=== PATIENT | male | born 1955 | race Caucasian/White ===

== ENCOUNTER 2020-10-21 15:58 | Inpatient (IN) | payer MEDICARE ==
[~2020-10-21] VITALS: Ht 175.3 cm; Wt 128.2 kg
[~2020-10-21 15:58] MED LIST: GLUCOPHAGE1000 MG PO; KLONOPIN 0.5MG0.5 MG PO; NORVASC 5MG5 MG/TAB PO; VYTORIN 10 MG-41 TAB PO
[2020-10-21 20:14] LABS: BASO % 0.2 % (0.0-2.0); EOS # 0.1 (0.0-0.7); EOS % 0.7 % (0-4.0); GRAN # 5.4 (1.4-6.5); GRAN % 54.1 % (42.2-75.2); HEMATOCRIT 47.3 % (42.0-52.0); HEMOGLOBIN 16.1 g/dl (13.5-18.0); LYMPH # 3.6 (1.2-3.4); LYMPH % 36.7 % (20.0-51.0); MEAN CELL VOLUME 89 fl (80.0-100.0); MEAN CORPUSCULAR HEMOGLOBIN 30 pg (27.0-31.0); MEAN CORPUSCULAR HGB CONC 34 g/dl (33.0-37.0); MEAN PLATELET VOLUME 11.1 fl (7.4-10.4); MONO # 0.8 (0.1-0.6); PLATELET COUNT 228 K/mm3 (130-400); RED BLOOD COUNT 5.33 M/mm3 (4.20-5.60); REDCELL DISTRIBUTION WIDTH-CV 12.5 % (11.5-14.5)
[2020-10-21 20:24] LABS: ALANINE AMINOTRANSFERASE 35 U/L (4-49); ALKALINE PHOSPHATASE 120 U/L (50-136); ANION GAP 10 mmol/L (7-16); AST,SGOT 62 U/L (15-37); BILIRUBIN,TOTAL 0.8 mg/dL (0.0-1.0); BLOOD UREA NITROGEN 12 mg/dL (9-20); CARBON DIOXIDE 24 mmol/L (22-30); CHLORIDE 100 mmol/L (98-107); CREATININE, serum 0.69 (0.66-1.25); GLUCOSE 237 mg/dL (74-106); POTASSIUM 4.2 mmol/L (3.4-5.0); SODIUM 133 mmol/L (137-145); TOTAL PROTEIN 7.5 gm/dL (6.4-8.2)
[2020-10-21 20:27] LABS: INR 1.7 (0.8-3.0); PROTHROMBIN TIME 18.7 SECONDS (9.7-12.8)
[2020-10-21 20:30] LABS: PARTIAL THROMBOPLASTIN TIME 38.5 SECONDS (26.0-37.0)
[2020-10-21 20:37] LABS: CHOLESTEROL 227 mg/dL (120-200); CHOLESTEROL RISK RATIO 5.8; HDL CHOLESTEROL 39 mg/dL; LDL CHOLESTEROL 150 mg/dL; MAGNESIUM 1.6 mg/dL (1.6-2.3); TRIGLYCERIDE 191 mg/dL
[2020-10-21 21:10] VITALS: BP 123/72; PULSE 82; TEMP 98
[2020-10-21] MEDS ORDERED: COUMADIN 2MG2 MG/TAB PO (22:42)
[2020-10-21] MEDS ORDERED: ALTACE 5MG5 MG PO (22:43)
[2020-10-21] MEDS ORDERED: GLYNASE PRES-TAB6 MG PO (22:44)
[2020-10-21] MEDS ORDERED: FLEXERIL 1010 MG/TAB PO (22:45)
[2020-10-21] MEDS ORDERED: NEURONTIN100 MG/CAP PO (22:46)
[2020-10-21] MEDS ORDERED: AMARYL 2MG T2 MG/TAB PO (22:48)
[2020-10-21] MEDS ORDERED: PRAVACHOL 40MG40 MG PO (22:48)
[2020-10-21 23:37] VITALS: BP 118/52; PULSE 77; TEMP 97.9
[2020-10-22] VITALS (15 sets, daily range): BP systolic 117–151; BP diastolic 54–92; PULSE 81–94; TEMP 97.4–98.6
--- NOTE | 2020-10-22 00:59 | NUR ---
Patient arrived to [facility] at 1845. Assessment complete. Lungs clear. Heart sounds normal. Bowels active x4. Pulses present throughout. No edema noted. INT left AC without complications. Heparin gtt to be started. Denies pains at this time. Denies needs. Orientated to medical floor. All questions answered. Call light in reach.
--- NOTE | 2020-10-22 02:16 | NUR ---
Resting in bed.Call light in reach.
--- NOTE | 2020-10-22 04:41 | NUR ---
Resting in bed. Denies needs. Denies pain. Call light in reach.
--- NOTE | 2020-10-22 06:25 | NUR ---
Patient had uneventful night. Remains on heparin gtt. Dose change verified by KOLBY Mayes. Resting in bed this AM. Call light in reach.
--- NOTE | 2020-10-22 07:20 | NUR ---
Report given to KOLBY Fuentes
--- NOTE | 2020-10-22 09:39 | NUR ---
SW met with the patient to discuss discharge plan. The patient lives in [place] with his , Mckenzie (ph#[phone]). He reports independence with ADLs and does not have any DME. The patient's PCP is Dr. Jeronimo Alvarez and he receives his medications from [facility]. The patient does not have a DPOA-HC in EMR, but he states that he might have one completed. He states that if he does have one completed, that he would have designated his daughter, Kavita Lund. The patient plans to return home with his upon discharge. SW contacted the patient's , Mckenzie, to review the above information. Mckenzie reports no concerns about the patient returning back home with her upon discharge. No additional needs at this time.
--- NOTE | 2020-10-22 11:57 | NUR ---
0900 Hepxa was 0.22. order state to add 1.5ml/hr. drip rate changed from 11.5ml/hr to 13.0ml/hr.
--- NOTE | 2020-10-22 12:38 | NUR ---
Patient is alert and oriented. denies any pain. npo for left heart cath. Patient resting in the room at this time.
--- NOTE | 2020-10-22 18:34 | NUR ---
patient current in phlebotomy lab assistant for heart cath.
--- NOTE | 2020-10-22 18:34 | NUR ---
patient requested, this rn call his when he is on his way for heart cath. RN called .
--- NOTE | 2020-10-22 18:55 | NUR ---
Received report from [facility]. Patient still on industrial laborer for his heart cath.
--- NOTE | 2020-10-22 19:10 | NUR ---
Received patient from lab rn. Patient is awake, alert and oriented. He has small incision on his right radial with compression band and on his right groin. No bleeding noted. With IV on left AC. He is on room air. No complains of pain. carpenter labor supervisor staff informed patient to notify us if he feels pain on lower back or any untoward feeling or symptoms.
--- NOTE | 2020-10-22 20:23 | NUR ---
He complains of pain on his right groin incision site. Sugey JARRETT gave patient Morphine IV.
--- NOTE | 2020-10-22 21:30 | NUR ---
Began removing air from right radial band from heart cath. 5 ml air removed around 2100. No bleeding noted after 10 minutes. Removed the remainder of the 11 mls of air, for a total of 16 mls. No bleeding. Bandaid applied. Arm board placed back on patient to protect site.
--- NOTE | 2020-10-22 23:20 | NUR ---
Patient went up to the bathroom. He then called saying his IV site was bleeding. Removed IV and reinsert a new one on his left hand G22. Checked on his right radial and right groin site. No bleeding noted. Applied tegaderm on his right groin as the dressing is about to fall off. No complains of pain. Changed patient's gown.
[2020-10-23] VITALS (12 sets, daily range): BP systolic 113–154; BP diastolic 51–78; PULSE 71–87; TEMP 97.4–98.4
--- NOTE | 2020-10-23 06:30 | NUR ---
Patient had uneventful night. Checked again his right radial and right groin this morning and no bleeding noted. He denies pain.
--- NOTE | 2020-10-23 08:00 | NUR ---
Patient sitting up in the recliner talking on the phone. A&Ox4. VSS. Denies chest pain and discomfort. IV CDI. Right radial site, CDI. Right femoral site CDI. Patient independent in the room. Is hoping to go home today, just waiting on the doctor. No further needs expressed from the patient. Call light within reach
[2020-10-23 11:01] LABS: CALCIUM 8.5 mg/dL (8.4-10.2); CREATININE, serum 0.81 (0.66-1.25); MAGNESIUM 1.5 mg/dL (1.6-2.3)
[2020-10-23 11:07] LABS: PARTIAL THROMBOPLASTIN TIME 31.9 SECONDS (26.0-37.0)
[2020-10-23 11:51] LABS: HEMATOCRIT 43.6 % (42.0-52.0); HEMOGLOBIN 14.6 g/dl (13.5-18.0); MEAN CELL VOLUME 91 fl (80.0-100.0); MEAN CORPUSCULAR HEMOGLOBIN 31 pg (27.0-31.0); MEAN CORPUSCULAR HGB CONC 34 g/dl (33.0-37.0); MEAN PLATELET VOLUME 11.5 fl (7.4-10.4); PLATELET COUNT 183 K/mm3 (130-400); RED BLOOD COUNT 4.79 M/mm3 (4.20-5.60); REDCELL DISTRIBUTION WIDTH-CV 12.8 % (11.5-14.5)
[2020-10-23 13:03] LABS: BAND 4 % (0-10); EOSINOPHIL 3 % (0-4); LYMPHOCYTE 25 % (20.0-51.0); NEUTROPHILS 62 % (42.0-75.2); PLATELET ESTIMATE NORMAL (NORMAL)
--- NOTE | 2020-10-23 17:25 | NUR ---
Patient had an uneventful day. Spent most of the day sitting in the recliner watching TV and talking on the phone. A&Ox4. VSS. IV CDI. Patient took a shower and felt better, the family brought clothes to the patient as well. Reported 1xtime pain in upper midsternal chest that was sharp, but did not last long. Nurse informed the patient that we will monitor and to inform nursing staff if it happens again. Patient verbalized an understanding. No further needs expressed stephanie the patient. Call light within reach
--- NOTE | 2020-10-23 20:00 | NUR ---
PT RESTING IN BED WATCHING TV. DENEIS ANY PAIN. TELEMEMTRY AT . HEPARIN GTT AT 10CC/HR. NEXT DRAW IN AM. SEE ASSESSMENT COMPLETED.
[2020-10-24] VITALS (8 sets, daily range): BP systolic 90–144; BP diastolic 51–76; PULSE 73–93; TEMP 97.4–98.8
--- NOTE | 2020-10-24 00:46 | NUR ---
PT RESTING COMFORTABLY. HEPARIN XA 0.12. BOLUS HEPARIN 1000UNITS AND INCREASED TO 12.5CC/HR. PT VERBALIZED UNDERSTANDING.
--- NOTE | 2020-10-24 00:52 | NUR ---
report received from KOLBY Walker
--- NOTE | 2020-10-24 06:30 | NUR ---
PT LAYING IN BED AT THIS TIME. DENIES ANY NEEDS. ASSESSEMENT COMPLETE. NO CONCERNS AT THIS TIME. CALL LIGHT WITHIN REACH.
[2020-10-24 06:48] LABS: BASO % 0.1 % (0.0-2.0); EOS # 0.1 (0.0-0.7); EOS % 1.3 % (0-4.0); GRAN # 4.4 (1.4-6.5); HEMOGLOBIN 14.7 g/dl (13.5-18.0); LYMPH # 3.2 (1.2-3.4); LYMPH % 37.8 % (20.0-51.0); MEAN CELL VOLUME 92 fl (80.0-100.0); MEAN CORPUSCULAR HEMOGLOBIN 31 pg (27.0-31.0); MEAN CORPUSCULAR HGB CONC 33 g/dl (33.0-37.0); MEAN PLATELET VOLUME 11.3 fl (7.4-10.4); MONO # 0.6 (0.1-0.6); MONO % 7.3 % (1.7-9.3); PLATELET COUNT 202 K/mm3 (130-400); RED BLOOD COUNT 4.81 M/mm3 (4.20-5.60); REDCELL DISTRIBUTION WIDTH-CV 12.7 % (11.5-14.5)
[2020-10-24 06:54] LABS: CALCIUM 8.8 mg/dL (8.4-10.2); CREATININE, serum 0.81 (0.66-1.25)
--- NOTE | 2020-10-24 14:08 | NUR ---
1320: Pt informed SALINA Pacheco that he was having chest pain. This nurse into room, pt states chest pain is to left side and in left bicep and sharp. Nitro X2 given at [address] Avila notified, order for 2MG morphine now given, med pulled, not given due to BP, wasted w/ second RN. Pt BP was 93/51 after nitro and retaken 105/59. Pt stated he started to feel better have second nitro. Assisted back to bed. EKG ordered per verbal on phone w/ Dr. Avila. EKG NS. Will continue to monitor.
--- NOTE | 2020-10-24 15:00 | NUR ---
Pt laying in bed, on phone, appears comfortable, denies chest pain at this time.
--- NOTE | 2020-10-24 17:30 | NUR ---
Pt assessment completed and charted. Medications administered per jan. Pt A&O, independent in room, on room air, breathing even and unlabored. Pt denied chest pain this morning, had the one episode this afternoon, resolved with nitro X2. BPs have been soft, continuing to monitor. Pt has LWR IV w/ hep gtt running at 12.5 this moring, increased to 14ml/hr after hep xa of 0.16. No further needs expressed throughout day.
--- NOTE | 2020-10-24 18:30 | NUR ---
PT LAYING IN BED AT THIS TIME. DENIES ANY NEEDS. ASSESSMENT COMPLETED. NO FURTHER CONCERNS. CALL LIGHT WITHIN REACH.
--- NOTE | 2020-10-24 23:00 | NUR ---
shift report received from KOLBY Walker
--- NOTE | 2020-10-24 23:34 | NUR ---
REPORT GIVEN TO KOLBY COLORADO
[2020-10-25] VITALS (186 sets, daily range): BP systolic 120–13150; BP diastolic 8–91; PULSE 70–82; TEMP 97.4–98.1; O2SAT 76–100
--- NOTE | 2020-10-25 00:05 | NUR ---
appears to be dozing, awakened for lab, alert and oriented, skin warm and dry, color pink, heart rate strong and regular, lungs CTA, abdomen rounded and soft and bowel sounds present in 4 quads, peripheral pulses present in 4 extremities, denies needs at this time
--- NOTE | 2020-10-25 02:20 | NUR ---
up and to bathroom independently, denies needs
--- NOTE | 2020-10-25 03:40 | NUR ---
appears to be sleeping, in bed with lights off, eyes closed, resp quiet and easy
--- NOTE | 2020-10-25 05:20 | NUR ---
awake and sitting up in recliner, talking on phone
[2020-10-25 06:42] LABS: HEMATOCRIT 44.9 % (42.0-52.0); HEMOGLOBIN 14.8 g/dl (13.5-18.0); MEAN CELL VOLUME 93 fl (80.0-100.0); MEAN CORPUSCULAR HEMOGLOBIN 31 pg (27.0-31.0); MEAN CORPUSCULAR HGB CONC 33 g/dl (33.0-37.0); MEAN PLATELET VOLUME 11.4 fl (7.4-10.4); PLATELET COUNT 211 K/mm3 (130-400); RED BLOOD COUNT 4.85 M/mm3 (4.20-5.60); REDCELL DISTRIBUTION WIDTH-CV 12.7 % (11.5-14.5)
[2020-10-25 06:47] LABS: CALCIUM 8.9 mg/dL (8.4-10.2); CREATININE, serum 0.97 (0.66-1.25); POTASSIUM 4.3 mmol/L (3.4-5.0)
--- NOTE | 2020-10-25 06:49 | NUR ---
bedside shift report given to KOLBY Frias
--- NOTE | 2020-10-25 08:47 | NUR ---
Pt assessment completed and charted. Pt laying in bed, denies any chest pain overnight or currently. Pt has LWR IV w/ hep gtt @ 14ml (1400 units/hr). Pt denies dizziness, N/V/D. Pt on room air, breathing even and unlabored. Pusles strong bilaterally. LS cta, HRRR. Tele called earlier, leads checked and then pt was having echo done. No further needs expressed at this time. Consent signed for heart cath, scheduled this afternoon.
--- NOTE | 2020-10-25 10:46 | NUR ---
SW attended clinical rounds. The patient is to have a heart cath today. He is hopeful to go home soon. No additional needs at this time.
--- NOTE | 2020-10-25 14:36 | NUR ---
Pt doing well, laying in bed, no complaints at this time. Awaiting heart cath. Pt still on hep gtt, currently at 13ml/hr, decreased 1 from previous rate per protocol. Pt to have heart cath around 1500. Per Smairafelipe, plavix and asp ok to give at this time. KOLBY Briggs from blood bank laboratory professional up to prep pt, all questions answered.
--- NOTE | 2020-10-25 15:15 | NUR ---
Talked w/ pt , informed her pt was going down for heart cath.
--- NOTE | 2020-10-25 15:27 | NUR ---
Pt down for heart cath procedure at this time w/ Chester RN from labor law professor
--- NOTE | 2020-10-25 15:44 | NUR ---
SEE MERGE DOCUMENTATION FOR MEDICATION ADMINISTRATION TIMES AND INTRA/POST PROCEDURE SEDATION ASSESSMENTS. PLAN FOR LEFT GROIN ACCESS PER MD REQUEST. PREPROCEDURE PLAVIX AND ASA ADMIN ON FLOOR PER MD. HEPARIN GTT STOPPED PRIOR TO PT BEING BROUGHT TO PROCEDURE AREA PER MD.
--- NOTE | 2020-10-25 17:14 | NUR ---
Chester RN called from label press operator, pt will go to ICU for monitoring and to have sheath removal. Pt will then return to room 308 when done. No report received on procedure at this time. This nurse called pt and updated on status. stated she had talked to the physician. No further questions at this time.
--- NOTE | 2020-10-25 17:48 | NUR ---
patient arrived from hot plate plywood press laborer at this time, left femore sheath remmains in place, site looks good / soft and no signs of bleeding or hematoma at this time, vital signs stable, patient alert/oriented, will continue to monitor closely
--- NOTE | 2020-10-25 18:07 | NUR ---
patient continues to do wel post PCI, left femoral access site is soft and no signs of bleeding, Vital signs stable, patient resting quietly
--- NOTE | 2020-10-25 19:10 | NUR ---
ACT 164, floating labor gang supervisor pulling arterial sheath at this time
--- NOTE | 2020-10-25 19:42 | NUR ---
ACT drawn at [address] Krause contacted by this RN, orders received to pull femoral artery sheath. Sheath pulled by RT Dione(R) with manual pressure held for 23 min. Pt VS's monitored Q5 min during pressure hold and maintained WNL throughout. Hemostasis obtained and sterile dressing applied. Bedside handoff to VICE PRESIDENT SAFETY with instructions to frequently observe/palpate site per MD order. Site currently without bruising or bleeding, soft to palpation with no hematoma appreciated. Excoriation is noted to skin fold in groin. Distal pulses unchanged from preprocedure. Education provided to pt regarding s/sx to report to VICE PRESIDENT SAFETY. All questions answered at this time.
--- NOTE | 2020-10-25 21:53 | NUR ---
PT ALERT AND ORIENTED X4, ON ROOM AIR, COMPLAIN OF PAIN 4/10 ON LEFT GROIN BUT TOLERABLE AND DENIES NEED OF PAIN MEDICATION. PT REMAINS ON FLAT TIME UNITIL 2330. ALL NIGHT MEDS GIVEN. NO OTHER COMPLAINTS AT THIS TIME. LEFT GROIN SITE WITH DRESSING C/D/I AND A LITTLE BIT OF EXCORIATION NOTED AT SHIFT CHANGE. PT WILL GO BACK TO HIS ROOM AT 2330 ONCE FLAT TIME IS OVER. WILL CONTINUE TO MONITOR.
--- NOTE | 2020-10-25 22:30 | NUR ---
PT REQUESTING TO GO BACK TO HIS ROOM NOW. EDUCATED THAT FLAT TIME IS NOT DONE UNTIL 2330. TOLD PT THAT I WILL GIVE REPORT TO HIS NURSE UPSTAIRS AND WILL START TRANSPORTING HIM AT 2315 VIA HIS BED WHILE REMAINING SUPINE. PT AGREED. LEFT FEMORAL SITE WITH DRESSING, C/D/I AND NO HEMATOMA OR BLEEDING NOTED. VSS. NO COMPLAINTS OF PAIN. WILL CONTINUE TO MONITOR.
--- NOTE | 2020-10-25 22:51 | NUR ---
REPORT GIVEN TO KOLBY COREA.
--- NOTE | 2020-10-25 23:19 | NUR ---
Arrived to medical floor at this time. Groin sites CDI. Flat time til 2330. Will monitor.
--- NOTE | 2020-10-25 23:20 | NUR ---
PT TRANSFERRED BACK TO HIS ROOM 308 VIA BED. PT WILL REMAIN IN SUPINE UNTIL 2330. NURSE NAHOMY AWARE OF PT'S ARRIVAL AND DID BEDSIDE HAND-OFF. SITE C/D/I WITH NO HEMATOMA OR BLEEDING NOTED.
--- NOTE | 2020-10-26 00:13 | NUR ---
Patient ambulated to restroom. Left femoral site CDI. NO signs of hematoma. Educated to report signs and symptoms of bleeding. Assessment complete. Lungs clear. Heart sounds normal. Bowels active x4. Pulses present throughout. No edema noted. INT left hand without complications. Denies pain. Right and left femoral sites CDI. Right radial site CDI. Denies needs at this time. Call light in reach.
[2020-10-26 01:15] VITALS: PULSE 7
[2020-10-26 03:51] VITALS: BP 101/83; PULSE 84; TEMP 98
--- NOTE | 2020-10-26 04:34 | NUR ---
Left femoral site CDI. Denies needs. INT left hand pulled out. Restarted in right forearm. Denies needs. Call light in reach.
--- NOTE | 2020-10-26 04:53 | NUR ---
Reported left thigh pains. No hematoma or bleeding at left femoral site. Given PRN tylenol. Will closely monitor.
--- NOTE | 2020-10-26 06:18 | NUR ---
Patient had left thigh pains this AM. SIte assessed and CDI at this time. Given tylenol. Otherwise uneventful night. Resting in bed this AM. Call light in reach.
--- NOTE | 2020-10-26 06:44 | NUR ---
Report given to KOLBY Shoemaker
[2020-10-26 07:59] VITALS: BP 151/91; PULSE 90; TEMP 97.2
--- NOTE | 2020-10-26 08:27 | NUR ---
Pt assessment completed and charted, medications administered per jan. Pt sitting in recliner, eating breakfast. pt A&O, independent in room, on room air, breathing is even and unlabored. Pt denies SOB, N/V/D, chest pain, dizziness. Pt c/o some discomfort to Lt mid thigh. Lt heart cath femoral site, CDI, covered w/ gauze and tegaderm, soft to touch, no hematoma noted. Pulses are stong bilaterally. LS cta, HRRR. Pt denies other needs at this time.
[2020-10-26] MEDS ORDERED: LIPITOR 80MG80 MG PO (09:52)
[2020-10-26] MEDS ORDERED: NITROSTAT0.4 MG/TAB SL (09:52)
[2020-10-26] MEDS ORDERED: PLAVIX 75MG TAB75 MG PO (09:52)
[2020-10-26] MEDS ORDERED: LOPRESSOR 225 MG/TAB PO (09:52)
[2020-10-26] MEDS ORDERED: ASPIRIN E.C. 8181 MG PO (09:53)
[2020-10-26] MEDS ORDERED: NORVASC 10MG10 MG PO (09:53)
[2020-10-26] MEDS ORDERED: LEVEMIR FLEX100 U/ML SQ (09:58)
[2020-10-26] MEDS ORDERED: NOVOLOG FLEX100 U/ML SQ (09:58)
[2020-10-26] MEDS ORDERED: GLUCOSE TEST ST1 DEV MC (09:59)
[2020-10-26] MEDS ORDERED: BD ALCOHOL1 SWA TP (09:59)
[2020-10-26] MEDS ORDERED: FREESTYLE PREC1 EAC5 MC (09:59)
[2020-10-26] MEDS ORDERED: LANCETS MC (10:00)
[2020-10-26] MEDS ORDERED: THE MEDICINE SH1 DE3 MC (10:00)
--- NOTE | 2020-10-26 10:06 | NUR ---
The patient is to discharge back home with his today, 10/26. SW read the IM form outloud to the patient. The patient verbalized understanding and gave SW approval to sign the form on his behalf. SW provided him with a copy. No additional needs at this time.
--- NOTE | 2020-10-26 11:44 | NUR ---
First visit from the drying unit felting machine operator. No needs right now.
--- NOTE | 2020-10-26 11:47 | NUR ---
Discharge instructions discussed and reviewed w/ patient who verbalized understanding, all questions answered. No further needs expressed. RFA INT IV dc'd w/ cath tip intact. Pt showered and awaiting for ride to arrive.
--- NOTE | 2020-10-26 12:10 | NUR ---
Pt escorted out via WC, and daughter arrived to metal pickling equipment operator patient.
== END 2020-10-26 12:10 | disposition home or self-care (01) | DRG 247 ==
LOC: MEDICAL 15:58 → ICU 10-25 17:53 → MEDICAL 10-25 17:53 → ICU 10-25 23:05 → MEDICAL 10-26 12:10
PROVIDERS: Family Medicine; Internal Medicine Adult Congenital Heart Disease; Student in an Organized Health Care Education/Training Program; ADMIT Hospitalist
PROC: 4A023N7 Measurement of Cardiac Sampling and Pressure, Left Heart, Percutaneous Approach (ICD-10-PCS; principal; 2020-10-22)
PROC: B2111ZZ Fluoroscopy of Multiple Coronary Arteries using Low Osmolar Contrast (ICD-10-PCS; 2020-10-22)
PROC: 027034Z Dilation of Coronary Artery, One Artery with Drug-eluting Intraluminal Device, Percutaneous Approach (ICD-10-PCS; 2020-10-25)
DX: I21.4 Non-ST elevation (NSTEMI) myocardial infarction (principal); E78.5 Hyperlipidemia, unspecified; I10 Essential (primary) hypertension; E11.40 Type 2 diabetes mellitus with diabetic neuropathy, unspecified; Z20.828 Contact with and (suspected) exposure to other viral communicable diseases; F41.9 Anxiety disorder, unspecified; G47.33 Obstructive sleep apnea (adult) (pediatric); G89.29 Other chronic pain; M54.9 Dorsalgia, unspecified; I07.1 Rheumatic tricuspid insufficiency; E11.65 Type 2 diabetes mellitus with hyperglycemia; Z90.49 Acquired absence of other specified parts of digestive tract; E66.01 Morbid (severe) obesity due to excess calories; Z79.02 Long term (current) use of antithrombotics/antiplatelets; I70.0 Atherosclerosis of aorta
CPT/HCPCS: 99223-AI; 99232-AI; 99239; C1760; C1769; C1887; C1894; C9600; J1644; J1815; J2250; J2270; J3010; Q9967

== ENCOUNTER 2021-04-01 08:50 | Day surgery (SDC) | payer MEDICARE ==
[2021-03-31 21:22] VITALS: BP 128/69; PULSE 70; TEMP 98.1
[~2021-04-01] VITALS: Ht 175.3 cm; Wt 147.5 kg
[2021-04-01] VITALS (20 sets, daily range): BP systolic 106–149; BP diastolic 53–83; PULSE 64–76; TEMP 98–98.1
[~2021-04-01 08:50] MED LIST changes: +ALTACE 5MG5 MG PO; +AMARYL 2MG T2 MG/TAB PO; +ASPIRIN E.C. 8181 MG PO; +BD ALCOHOL1 SWA TP; +COUMADIN 2MG2 MG/TAB PO; +FLEXERIL 1010 MG/TAB PO; +FREESTYLE PREC1 EAC5 MC; +GLUCOSE TEST ST1 DEV MC; +GLYNASE PRES-TAB6 MG PO; +LANCETS MC; +LEVEMIR FLEX100 U/ML SQ; +LIPITOR 80MG80 MG PO; +LOPRESSOR 225 MG/TAB PO; +NEURONTIN100 MG/CAP PO; +NITROSTAT0.4 MG/TAB SL; +NORVASC 10MG10 MG PO; +NOVOLOG FLEX100 U/ML SQ; +PLAVIX 75MG TAB75 MG PO; +PRAVACHOL 40MG40 MG PO; +THE MEDICINE SH1 DE3 MC
[2021-04-01 09:47] LABS: HEMATOCRIT 39.1 % (42.0-52.0); HEMOGLOBIN 13.1 g/dl (13.5-18.0); MEAN CELL VOLUME 89 fl (80.0-100.0); MEAN CORPUSCULAR HEMOGLOBIN 30 pg (27.0-31.0); MEAN CORPUSCULAR HGB CONC 34 g/dl (33.0-37.0); MEAN PLATELET VOLUME 10.5 fl (7.4-10.4); PLATELET COUNT 176 K/mm3 (130-400); REDCELL DISTRIBUTION WIDTH-CV 12.9 % (11.5-14.5)
[2021-04-01 09:56] LABS: CALCIUM 8.9 mg/dL (8.4-10.2); CREATININE, serum 0.73 (0.66-1.25); POTASSIUM 4.4 mmol/L (3.4-5.0)
[2021-04-01] MEDS ORDERED: PLAVIX 75MG TAB75 MG PO (09:59)
[2021-04-01] MEDS ORDERED: COREG12.5 MG PO (10:00)
[2021-04-01] MEDS ORDERED: ZESTRIL40 MG PO (10:00)
[2021-04-01] MEDS ORDERED: NOVOLIN N100 UNIT/1 SQ (10:01)
[2021-04-01] MEDS ORDERED: HUMALOG100 U/ML SQ (10:01)
[2021-04-01] MEDS ORDERED: NEURONTIN100 MG/CAP PO (10:02)
[2021-04-01] MEDS ORDERED: ASPIRIN E.C. 8181 MG PO (10:02)
[2021-04-01] MEDS ORDERED: FLEXERIL 1010 MG/TAB PO (10:02)
[2021-04-01] MEDS ORDERED: LASIX 40MG TABL40 MG PO (10:03)
[2021-04-01] MEDS ORDERED: IMDUR 60MG60 MG/TAB PO (10:03)
[2021-04-01] MEDS ORDERED: CADUET 10 MG-801 TAB PO (10:03)
[2021-04-01 10:05] LABS: INR 1.1 (0.8-3.0); PROTHROMBIN TIME 11.7 SECONDS (9.7-12.8)
[2021-04-01 10:07] LABS: PARTIAL THROMBOPLASTIN TIME 30.2 SECONDS (26.0-37.0)
--- NOTE | 2021-04-01 14:39 | NUR ---
Arterial sheath remains in place to rt femoral artery. Pressure bag, dressing and groin site checked by this nurse and West Arabic Translator RN prior to handoff. Site soft to palpation. Strong pedal pulse. Pt free of complaint. Call light in reach.
--- NOTE | 2021-04-01 17:35 | NUR ---
Phone report given to KOLBY Broussard on Medical. Post sheath removal pt will be admitted to [facility]. KOLBY Dodson in room to recheck ACT time.
--- NOTE | 2021-04-01 18:00 | NUR ---
PT CARE ASSUMED AT THIS TIME.
--- NOTE | 2021-04-01 18:12 | NUR ---
Bedside report given to KOLBY Baires so she may continue to monitor pt while he remains in EU. KOLBY Broussard notified that laboratory apparatus glass grinder will remove sheath when staff is available to do so. Pt free of complaints. Rt groin remains soft to palpation. at bedside, both deny further needs at this time. Call light in reach.
--- NOTE | 2021-04-01 19:20 | NUR ---
JORGE LUIS RN AT BS TO REMOVE SHEATH. PRESSURE HELD FOR 20 MINUTES, SITE DRESSED WITH GAUZE AND TEGADERM. SITE CLEAN AND DRY, SOFT, CMS INTACT DISTAL.
--- NOTE | 2021-04-01 19:30 | NUR ---
Pt normotensive. Right femoral artery sheath pulled and manual pressure held for 20 minutes. Site stable and distal pulses +2. Site covered with dry gauze dressing and tegaderm dressing. Pt instructed to apply pressure to site if he needs to sneeze, laugh or bare down. Pt tolerated procedure well and bedside report to KOLBY Baires. Right femoral site stable.
--- NOTE | 2021-04-01 20:03 | NUR ---
Right femoral site reassessed and stable. Pt denies needs at this time.
--- NOTE | 2021-04-01 21:05 | NUR ---
PT TRANFERRED TO MEDICAL FLOOR VIA STAFF AT 2100 FROM IMPLEMENTATION ADVISOR. PT ON 4 HOURS BED REST, NURSE WILL RETURN AT 2300 TO HELP PT AMBULATE. FEMORAL SITE DRY AND INTACT, NO HEMATOMA, PEDAL PULSE WEAK. PT A/O, VSS, 02 ROOM AIR. REPORTS NO PAIN. CALL LIGHT WITHIN REACH.
[2021-04-02 00:22] VITALS: BP 147/63; PULSE 71; TEMP 98.3
--- NOTE | 2021-04-02 00:52 | NUR ---
AT 2300 HOURS NURSE HELPED PT AMBULATE TO BATHROOM, UPON SITTING UP PT STATED HE FELT DIZZY, NURSE INFORMED HIM TO TAKE HIS TIME GETTING UP, PT WAS ABLE TO AMBULATE TO BATHROOM WITH A STEADY GAIT. PT CURRENTLY BACK IN BED, HOB AT 30 DEGREE'S. FEMORAL SITE DRY AND INTACT. NO NOTED HEMATOMAS, PEDAL PULSE PALPABLE. PT C/O MILD DISCOMFORT TO FEMORAL SITE. DENIES SOB, PAIN, N/V/D. 02 ROOM AIR. PT EXPRESSES NO ADDITIONAL NEEDS AT THIS TIME. CALL LIGHT WITHIN REACH.
[2021-04-02 03:47] VITALS: BP 127/62; PULSE 69; TEMP 97.9
[2021-04-02 04:00] VITALS: BP 127/62; PULSE 69; TEMP 97.9
--- NOTE | 2021-04-02 05:53 | NUR ---
PT HAD UNEVENTFUL NIGHT, SLEPT FOR THE MAJORITY OF THE NIGHT. RIGHT FEMORAL SITE DRY AND INTACT, 02 ROOM AIR, VSS. DENIES PAIN, N/V/D, SOA. PT CURRENTLY EXPRESSES NO ADDITIONAL NEEDS AT THIS TIME. CALL LIGHT WITHIN REACH.
[2021-04-02 08:16] VITALS: BP 134/64; PULSE 68; TEMP 97.8
[2021-04-02] MEDS ORDERED: NITROSTAT0.4 MG/TAB SL (09:48)
--- NOTE | 2021-04-02 12:21 | NUR ---
Plan is to return home with in [facility]. Patient met with client about DC plan. Patient reports that his supports his needs at home [place] [phone]. Patinet indicated that his PCP is Dr. Duggan. Medications are obtained at [facility]. Patient reports that he is not needing any HHS but reports needing appointment for Cardiac Rehab in [facility]. Educated on service supports. to transport home. NF.
--- NOTE | 2021-04-02 12:54 | NUR ---
stopped by and visited with patient.
--- NOTE | 2021-04-02 16:11 | NUR ---
Pt discharged to home, discussed discharge information with Pt, answered questions. Escorted Pt to entrance, Pt left with family via private transportation.
== END 2021-04-02 12:20 | disposition home or self-care (01) ==
LOC: COL.CAR 08:50 → MEDICAL 20:37 → COL.CAR 04-02 12:20
PROVIDERS: Internal Medicine Cardiovascular Disease
DX: R07.89 Other chest pain (principal); I25.10 Atherosclerotic heart disease of native coronary artery without angina pectoris; I10 Essential (primary) hypertension; E78.5 Hyperlipidemia, unspecified; E11.9 Type 2 diabetes mellitus without complications; E66.9 Obesity, unspecified; Z20.822 Contact with and (suspected) exposure to COVID-19; Z79.82 Long term (current) use of aspirin; Z79.899 Other long term (current) drug therapy; Z79.02 Long term (current) use of antithrombotics/antiplatelets; Z79.4 Long term (current) use of insulin
CPT/HCPCS: OP; C1725; C1769; C1874; C1887; C1894; C9600; J1644; J1815; J2250; J3010; J7030; Q9967